=== PATIENT | male | born 1960 | race African-American/Black ===

== ENCOUNTER 2017-02-03 15:19 | Emergency (ER) | payer BC | END 2017-02-03 16:37 | disposition short-term general hospital (02) | LOC: ER 15:19 | DX: I46.9 Cardiac arrest, cause unspecified (principal); S09.90XA Unspecified injury of head, initial encounter; I10 Essential (primary) hypertension; X58.XXXA Exposure to other specified factors, initial encounter | CPT/HCPCS: 36415; 51702; 90471; 92950; 96365; 96368; 96375; J0282 ==